=== PATIENT | male | born 1940 | race Caucasian/White ===

== ENCOUNTER → 2016-12-15 | Outpatient (CLI) | payer OTHER ==
[~2016-12-15] MED LIST: GADOBUTROL 10 ML VIAL IVP ONE
[2016-12-15 09:02] LABS: CREATININE 0.9 mg/dL (0.7-1.3); GLOMERULAR FILTRATION RATE > 60
--- NOTE | 2016-12-15 10:12 | MR ---
MRI of the Brain (Without and With Contrast) Clinical History: 76-year-old male with a history of atrial fibrillation and cognitive dysunction. Ru le out stroke. ICD 10 Diagnostic Code: R41.89. Technique: T1-weighted images were acquired axially and sagittally from the foramen magnum to the sku ll vertex. Axial fast inversion recovery, fast T2-weighted, and diffusion-weighted axial images were obtained without contrast. Postcontrast axial, coronal, and sagittal images followed the uneventful intravenous administration of 7.5 mL of IV Gadavist contrast. Comparison Study: Unenhanced CT imaging of brain, dated May 13, 2009. Findings: There is moderate prominence of the ventricles and basilar cisterns, with cortical sulcal w idening, consistent with global cerebral cortical atrophy. There is also mild degree of cerebellar co rtical atrophy. There is no mass, midline subfalcine shift, herniation, or intraparenchymal, subarach noid, epidural, or subdural hematoma. The diffusion-weighted images demonstrates no acute or subacute infarct. The SWI sequences do not reveal any blooming artifact to suggest occult hemorrhagic product s, or amyloid angiopathy. The FLAIR sequences are notable for some scattered periventricular level shaikh bcortical and deep white matter hyperintensities, most consistent with chronic microvascular ischemic gliosis. The cerebellar tonsils are in a normal position. The pituitary gland is normal in size. Nor amaya-expected signal flow-voids are noted in the superior sagittal sinus, the vertebrobasilar artery , and both internal carotid arteries, indicating patency. Postcontrast images demonstrate no enhancin g lesions, or abnormal leptomeningeal enhancement. The paranasal sinuses and the mastoid air cells ar e clear. The orbits are unremarkable. There is mild leftward nasal septal deviation. Impression: Moderate global cerebral cortical atrophy, with no evidence of a localized infarction.
== END ==
LOC: FIMAGING 08:07
PROVIDERS: ATTEND Internal Medicine
DX: G31.9 Degenerative disease of nervous system, unspecified (principal); I48.91 Unspecified atrial fibrillation
CPT/HCPCS: 70553; A9585

== ENCOUNTER 2017-09-04 12:52 | Emergency (ER) | payer OTHER ==
--- NOTE | 2017-09-04 13:27 | EDPHY ---
H & P Stated Complaint: irregular heart rate, Afib Time Seen by Provider: 09/04/17 13:10 HPI/ROS: CHIEF COMPLAINT: Palpitations HISTORY OF PRESENT ILLNESS: Patient is a 77-year-old man with history of paroxysmal atrial fibrillation. He is on carvedilol and aspirin. He does not take any other blood thinners because this only happens once per year or so. He states that usually lasts 5 or 10 minutes and then resolved spontaneously. He has not had to be cardioverted before. He states that he could tell when it began today around 10:00 a.m.. He feels lightheaded when he stands up and easily fatigued when he walks. No shortness of breath. No chest pain. He was hypotensive at the medical center and was referred to the emergency department. He denies recent infections. He also has a history of hypothyroidism. REVIEW OF SYSTEMS: Constitutional: denies: chills, fever, recent illness, recent injury EENTM: denies: blurred vision, double vision, nose congestion Respiratory: denies: cough, shortness of breath Cardiac: See HPI Gastrointestinal/Abdominal: denies: abdominal pain, diarrhea, nausea, vomiting, blood streaked stools Genitourinary: denies: dysuria, frequency, hematuria, pain Musculoskeletal: denies: joint pain, muscle pain Skin: denies: lesions, rash, jaundice, bruising Neurological: denies: headache, numbness, paresthesia, tingling, dizziness, weakness Hematologic/Lymphatic: denies: blood clots, easy bleeding, easy bruising Immunologic/allergic: denies: HIV/AIDS, transplant EXAM: GENERAL: Well-appearing, well-nourished and in no acute distress. HEAD: Atraumatic, normocephalic. EYES: Pupils equal round and reactive to light, extraocular movements intact, sclera anicteric, conjunctiva are normal. ENT: TMs normal, nares patent, oropharynx clear without exudates. Moist mucous membranes. NECK: Normal range of motion, supple without lymphadenopathy or JVD. LUNGS: Breath sounds clear to auscultation bilaterally and equal. No wheezes rales or rhonchi. HEART: Irregular without murmurs, rubs or gallops. ABDOMEN: Soft, nontender, normoactive bowel sounds. No guarding, no rebound. No masses appreciated. BACK: No CVA tenderness, no spinal tenderness, step-offs or deformities EXTREMITIES: Normal range of motion, no pitting or edema. No clubbing or cyanosis. NEUROLOGICAL: Cranial nerves II through XII grossly intact. Normal speech, normal gait. 5/5 strength, normal movement in all extremities, normal sensation PSYCH: Normal mood, normal affect. SKIN: Warm, dry, normal turgor, no visible rashes or lesions. Source: Patient Exam Limitations: No limitations - Personal History Current Tetanus Diphtheria and Acellular Pertussis (TDAP): Yes Tetanus Vaccine Date: 2004 - Medical/Surgical History Hx Asthma: Yes Hx Chronic Respiratory Disease: No Hx Diabetes: No Hx Cardiac Disease: No Hx Renal Disease: No Hx Cirrhosis: No Hx Alcoholism: No Hx HIV/AIDS: No Hx Splenectomy or Spleen Trauma: No Other PMH: Paroxysmal afib, hypothyroidism,depression asthma - Family History Significant Family History: No pertinent family hx - Social History Smoking Status: Unknown if ever smoked Alcohol Use: Sober Drug Use: None Constitutional: Initial Vital Signs Temperature (C) 36 C 09/04/17 12:57 Heart Rate 83 09/04/17 12:57 Respiratory Rate 16 09/04/17 12:57 Blood Pressure 99/73 L 09/04/17 12:57 O2 Sat (%) 96 09/04/17 12:57 O2 Delivery Mode [Post Room Air Procedure 3rd] O2 Delivery Mode [Procedural Non-Rebreather Mask 2nd] O2 Delivery Mode [Post Non-Rebreather Mask Procedure 1st] O2 Delivery Mode [Procedural Non-Rebreather Mask 1st] O2 Delivery Mode [.Immediate Non-Rebreather Mask Pre-Procedure] O2 Delivery Mode Room Air O2 (L/minute) [Procedural 2nd] 15 O2 (L/minute) [Post Procedure 15 1st] O2 (L/minute) [Procedural 1st] 15 O2 (L/minute) [.Immediate Pre- 15 Procedure] O2 (L/minute) 6 Allergies/Adverse Reactions: No Known Allergies Allergy (Verified 01/13/12 19:01) Home Medications: Medication Instructions Recorded Ascorbic Acid [Vitamin C] 1,000 mg PO 01/13/12 Aspirin [Aspirin 81mg] 81 mg PO DAILY 01/13/12 Carvedilol [Coreg] 3.125 mg PO BIDMEAL 01/13/12 DULoxetine [Cymbalta] 60 mg PO DAILY 01/13/12 Iron Bis-Gly/FA/C/B12/Ca/Succ 65 mg PO 01/13/12 [Iron-150 Tablet] Levothyroxine [Synthroid] 88 mcg PO DAILY@1000 01/13/12 MAGNESIUM [Magnesium Oxide] 1 tab PO DAILY 01/13/12 Modafinil [Provigil] 200 mg PO DAILY 01/13/12 Multivit-Min/FA/Lycopene/Lut 1 each PO 01/13/12 [Centrum Silver Tablet] Ped Multivit #45/Iron Sulfate 50 ml PO 01/13/12 [Poly-Vi-Raiza With Iron] Ramipril [Altace] 2.5 mg PO DAILY 01/13/12 Apixaban [Eliquis] 5 mg PO BID #60 tablet 09/04/17 Carvedilol 09/04/17 Medical Decision Making - Diagnostics EKG Interpretation: An EKG obtained and was read and documented in trace view. Please see trace view for full reading and report. Atrial fibrillation, Imaging Results: Imaging Impressions Chest X-Ray 09/04/17 13:21 Impression: Negative. Procedures: Cardioversion: The patient was sedated and then synchronized cardioversion with 125 joules. He went from atrial fibrillation to sinus rhythm. His blood pressure immediately responded from 85 systolic to 125 systolic. He is feeling much better. Heart rate 85. Procedure: Procedural sedation. Indication: Cardioversion. A pre-sedation evaluation was completed on the patient just prior to the procedure. Patient is an appropriate candidate for procedural sedation with a normal 3-3-2 rule assessment and a Mallampati airway score of class 1. The risks of the sedation were discussed including but not limited to dysrhythmia, need for airway intervention or general anesthesia, disability, ; and verbal consent obtained. A timeout was observed and patient's identity confirmed. The patient was sedated with ketamine. The patient was monitored with continuous pulse oximetry, capnography, and campus monitor. There were no complications and no significant hypoxemia. I remained at the bedside for the sedation. The total time I spent in the procedural sedation was 16 minutes. ED Course/Re-evaluation: The patient is having symptomatic atrial fibrillation and is borderline hypotensive. He reports that at the medical center is blood pressure is 80/55. This patient would benefit from cardioversion. He is hesitant for electrical cardioversion. I will start with procainamide. He is somewhat stable at this time but I am worried he will decompensate. I will withhold further Cardizem at this time because of his hypertension and his rate is controlled generally between 90 and 100 3:00 p.m. the patient was initially hesitant for cardioversion. He was given procainamide without significant response. His heart rate remained in the 120s and his blood pressure was dropping between 75 and 85 systolic. Decision was made for emergency cardioversion. He was also pretreated with Lovenox. 3:45 p.m. the patient remains stable. His blood pressure is improved to normal. His heart rate is 70. He is eager to go home. I am waiting for Cardiology to call back. 405 Dr. Victor is here to evaluate the patient and agrees with discharge. He recommends Eliquis for the next month until he follows up with Dr. Dupree. We have given him a card for free 30 days treatment. Differential Diagnosis: Partial list of the Differential diagnosis considered include but were not limited to; atrial fibrillation, hypotension and although unlikely based on the history and physical exam, I also considered infection, acute coronary disease. I discussed these differential diagnoses and the plan with the patient as well as the usual and expected course. The patient understands that the diagnosis is provisional and that in medicine we are not always correct and that further workup is often warranted. Usual and customary warnings were given. All of the patient's questions were answered. The patient was instructed to return to the emergency department should the symptoms at all worsen or return, otherwise to followup with the physician as we discussed. Critical Care Time: Critical care time spent by me, Dr. Boyd exclusive with this patient was 45 minutes, exclusive of the PA time exclusive of procedures. The organ system that was at risk was cardiovascular and I gave IV fluids, medications, cardioversion to prevent worsening of the patient's condition - Data Points Laboratory Results: Laboratory Results 09/04/17 13:38 09/04/17 13:38 09/04/17 09/04/17 13:38 13:38 WBC 8.00 10^3/uL 10^3/uL (3.80-9.50) RBC 5.04 10^6/uL 10^6/uL (4.40-6.38) Hgb 15.9 g/dL g/dL (13.7-17.5) Hct 46.2 % % (40.0-51.0) MCV 91.7 fL fL (81.5-99.8) MCH 31.5 pg pg (27.9-34.1) MCHC 34.4 g/dL g/dL (32.4-36.7) RDW 13.6 % % (11.5-15.2) Plt Count 219 10^3/uL 10^3/uL (150-400) MPV 8.9 fL fL (8.7-11.7) Neut % (Auto) 65.8 % % (39.3-74.2) Lymph % (Auto) 19.9 % % (15.0-45.0) [place] % (Auto) 9.8 % % (4.5-13.0) Eos % (Auto) 3.1 % % (0.6-7.6) Baso % (Auto) 1.3 % % (0.3-1.7) Nucleat RBC Rel Count 0.0 % % (0.0-0.2) Absolute Neuts (auto) 5.27 10^3/uL 10^3/uL (1.70-6.50) Absolute Lymphs (auto) 1.59 10^3/uL 10^3/uL (1.00-3.00) Absolute Monos (auto) 0.78 10^3/uL 10^3/uL (0.30-0.80) Absolute Eos (auto) 0.25 10^3/uL 10^3/uL (0.03-0.40) Absolute Basos (auto) 0.10 10^3/uL 10^3/uL (0.02-0.10) Absolute Nucleated RBC 0.00 10^3/uL 10^3/uL (0-0.01) Immature Gran % 0.1 % % (0.0-1.1) Immature Gran # 0.01 10^3/uL 10^3/uL (0.00-0.10) Sodium 141 mEq/L mEq/L (134-144) Potassium 4.5 mEq/L mEq/L (3.5-5.2) Chloride 103 mEq/L mEq/L (97-110) Carbon Dioxide 27 mEq/l mEq/l (22-31) Anion Gap 11 mEq/L mEq/L (8-16) BUN 17 mg/dL mg/dL (7-23) Creatinine 1.4 mg/dL H mg/dL (0.7-1.3) Estimated GFR 49 Glucose 83 mg/dL mg/dL (70-100) Calcium 9.0 mg/dL mg/dL (8.5-10.4) Troponin I 0.028 ng/mL ng/mL (0.000-0.034) TSH 2.960 uIU/mL uIU/mL (0.465-4.680) Free T4 1.00 ng/dL ng/dL (0.59-2.19) Medications Given: Discontinued Medications Enoxaparin Sodium (Lovenox) 80 mg SC ONCE ONE Stop: 09/04/17 14:01 Last Admin: 09/04/17 14:20 Dose: 80 mg Sodium Chloride (Ns) 1,000 mls @ 0 mls/hr IV EDNOW ONE; Wide Open PRN Reason: Protocol Stop: 09/04/17 13:21 Last Admin: 09/04/17 13:36 Dose: 1,000 mls Procainamide HCl 1,000 mg/ (Dextrose) 60 mls @ 120 mls/hr IV ONCE ONE Stop: 09/04/17 13:51 Last Admin: 09/04/17 14:19 Dose: 60 mls Ketamine HCl (Ketamine) 50 mg IVP EDNOW ONE Stop: 09/04/17 14:59 Last Admin: 09/04/17 14:58 Dose: 50 mg Departure - Departure Disposition: Home, Routine, Self-Care Clinical Impression: History of cardioversion Atrial fibrillation Qualifiers: Atrial fibrillation type: paroxysmal Qualified Code(s): I48.0 - Paroxysmal atrial fibrillation Condition: Fair Instructions: Atrial Flutter (ED), A-fib (Atrial Fibrillation) (ED) Referrals: Janae Tovar MD [Primary Care Provider] - As per Instructions David Dupree MD [Medical Doctor] - 5-7 days, call for appt. Prescriptions: Apixaban [Eliquis] 5 mg PO BID #60 tablet
--- NOTE | 2017-09-04 13:32 | CPEKG ---
Heart Rate: 129 RR Interval: 465 QRSD Interval: 88 QT Interval: 336 QTC Interval: 493 QRS [place]: 58 T Wave [place]: 65 EKG Severity - ABNORMAL ECG - EKG Impression: ATRIAL FIBRILLATION EKG Impression: BORDERLINE T ABNORMALITIES, ANT-LAT LEADS EKG Impression: BORDERLINE PROLONGED QT INTERVAL Electronically Signed By: Albaro Boyd 04-Sep-2017 13:33:23
[2017-09-04] MEDS: NS 1,000 ML IV ONE (13:36)
[2017-09-04 13:46] LABS: % IMMATURE GRANULYOCYTES 0.1 % (0.0-1.1); ABSOLUTE IMMATURE GRANULOCYTES 0.01 10^3/uL (0.00-0.10); ADD DIFF? NO; ADD MORPH? NO; ADD SCAN? NO; ATYPICAL LYMPHOCYTE FLAG 0 (0-99); FRAGMENT RBC FLAG 0 (0-99); HEMATOCRIT 46.2 % (40.0-51.0); HEMOGLOBIN 15.9 g/dL (13.7-17.5); LEFT SHIFT FLG 0 (0-99); LIPEMIA HEMOLYSIS FLAG 90 (0-99); MEAN CELL HEMOGLOBIN 31.5 pg (27.9-34.1); MEAN CELL HEMOGLOBIN CONCENTR. 34.4 g/dL (32.4-36.7); MEAN CELL VOLUME 91.7 fL (81.5-99.8); MEAN PLATELET VOLUME 8.9 fL (8.7-11.7); PLATELET CLUMPS FLAG 10 (0-99); PLATELET COUNT 219 10^3/uL (150-400); RED BLOOD CELL COUNT 5.04 10^6/uL (4.40-6.38); RED CELL DISTRIBUTION WIDTH 13.6 % (11.5-15.2)
[2017-09-04 13:55] LABS: ANION GAP 11 mEq/L (8-16); CARBON DIOXIDE 27 mEq/l (22-31); CHLORIDE 103 mEq/L (97-110); CREATININE 1.4 mg/dL (0.7-1.3); GLOMERULAR FILTRATION RATE 49; GLUCOSE 83 mg/dL (70-100); POTASSIUM 4.5 mEq/L (3.5-5.2); SODIUM 141 mEq/L (134-144)
[2017-09-04 14:07] LABS: TROPONIN I 0.028 ng/mL (0.000-0.034)
[2017-09-04] MEDS: PROCAINAMIDE HCL 1,000 MG in D5W 50 ML IV ONE (14:19)
[2017-09-04] MEDS: ENOXAPARIN 80 MG/0.8 ML SYR SC ONE (14:20)
[2017-09-04] MEDS ORDERED: KETAMINE 100 MG/10 ML SYR ONE (14:45)
[2017-09-04] MEDS: KETAMINE 100 MG/10 ML SYR IVP ONE (14:58)
[2017-09-04 17:05] VITALS: BP 98/58; PULSE 76; RESP 18; TEMP 97.9; O2SAT 92
--- NOTE | 2017-09-04 17:24 | GCON ---
[f rep st] CONSULTATION DATE OF CONSULTATION: 09/04/2017 CONSULTATION REQUESTED BY: Dr. Boyd from the ER. REASON FOR CONSULTATION: Paroxysmal atrial fibrillation. HISTORY: The patient is a 77-year-old male with a history of paroxysmal atrial fibrillation and nicho schemic cardiomyopathy. He was followed for many years by Dr. Paris at [facility], and he currently sees Dr. David Dupree. He presents to the emergency room with recurrence of his atrial f ibrillation. He could tell that his arrhythmia started earlier today. He noticed that he was very f atigued and felt lightheaded upon standing. He did not have any chest discomfort. He was seen at [facility] and was hypotensive with systolic pressures in the 80s. Therefore, he was refer red to the emergency department. Because of his low blood pressure, it was recommended that he under go cardioversion. He was somewhat reluctant to consider this; therefore, he was administered intrave nous procainamide without any change in his arrhythmia. Because of continued hypotension, he ultimat estephanie did undergo electrical cardioversion by Dr. Boyd in the ER. We were then contacted to assess the patient for potential discharge from the emergency room. The patient is currently stable and fee ls well. He is maintaining sinus rhythm. PAST MEDICAL HISTORY: He has a nonischemic cardiomyopathy. In 2002, his ejection fraction was repor fanta as 35%. At that time, cardiac catheterization demonstrated normal coronary arteries. I do not h ave any information regarding more recent assessment of his left ventricular function. A consultatio n for an episode of syncope in 2008 mentions amiodarone 100 mg daily in addition to his other medicat ions. He is not currently on anti-arrhythmic therapy. It sounds as if, because he has a relatively low burden of atrial fibrillation, systemic anticoagulation has been deferred. Additionally, he had significant epistaxis and gum bleeding along with some hematuria when he was on warfarin in the past. He reports that he experiences self-limited episodes of palpitations, lasting just a couple minutes on a fairly regular basis. A few times per year he may have a longer episode, such as today. He do es not have a history of hypertension or diabetes. He says his cholesterol is somewhat borderline, b ut he has not been placed on cholesterol-lowering medications. He has hypothyroidism. He has not ho d any major surgical procedures. FAMILY HISTORY: Noncontributory. MEDICATIONS: His home medicines consist of aspirin, carvedilol 3.125 mg twice daily, Cymbalta, Synth roid, Provigil, Altace 2.5 mg daily, and a multivitamin. ALLERGIES: No known drug allergies. SOCIAL HISTORY: He is . His is with him in the emergency room today. He has never been a smoker. Alcohol consumption is minimal. REVIEW OF SYSTEMS: Apart from the issues mentioned in the history of present illness, a 10-point rev iew was negative. PHYSICAL EXAMINATION: VITAL SIGNS: Heart rate in the 70s with sinus rhythm on the monitor. Blood p ressure 120s over 70s. GENERAL: Well-developed, well-nourished male, in no acute distress. He is a lert and oriented x3. HEAD AND NECK: No scleral icterus. Mucous membranes moist. Carotid pulses 2 + without bruits. No JVD. CHEST: Lung fabian clear to auscultation bilaterally. CARDIAC: Regular rate and rhythm with a normal S1, S2. No murmur or gallop appreciated. ABDOMEN: Soft, nontender, and nondistended with normal bowel sounds. EXTREMITIES: 2+ pulses and no peripheral edema. DIAGNOSTICS: ECG: At the time of presentation demonstrated atrial fibrillation with a ventricular r ate of 129 beats per minute. There were no Q-waves or conduction system abnormalities. No ischemic ST-T wave abnormalities. LABORATORY STUDIES: Sodium 141, potassium 4.5, BUN and creatinine 17 and 1.4. Troponin is 0.028. C BC: White blood cell count of 8.0 with hemoglobin and hematocrit of 15.9 and 46.2, and platelet coun t 219,000. IMPRESSION: This is a 77-year-old male with a history of paroxysmal atrial fibrillation. He present ed today with a significantly symptomatic episode associated with hypotension. He underwent electric al cardioversion in the emergency room. He is now stable and able to be discharged. RECOMMENDATIONS: Given the fact that he underwent an electrical cardioversion, his risk for left atr ial appendage thrombus and potential stroke are increased for the next 4 weeks. Therefore he will di scontinue his aspirin and has been given a prescription for Eliquis 5 mg twice daily to be taken for the next 30 days. He can discuss whether or not to pursue long-term systemic anticoagulation with Dr Pelon Dupree. Likewise, adjustments to his treatment plan, such as addition of an antiarrhythmic, should b e solely based on the patient's preference and how bothersome his episodes of atrial fibrillation are . He certainly appears to be a candidate for balloon cryoablation if his atrial fibrillation becomes more frequent and/or more bothersome. /[id number]/MODL
== END 2017-09-04 17:09 | disposition home or self-care (01) ==
PROC: 5A2204Z Restoration of Cardiac Rhythm, Single (ICD-10-PCS; principal; 2017-09-04)
DX: I48.0 Paroxysmal atrial fibrillation (principal); J45.909 Unspecified asthma, uncomplicated; E86.9 Volume depletion, unspecified; Z79.82 Long term (current) use of aspirin; Z79.01 Long term (current) use of anticoagulants; Z98.890 Other specified postprocedural states
CPT/HCPCS: 96365; J1650; J2690

== ENCOUNTER 2017-12-27 09:32 | Emergency (ER) | payer OTHER ==
--- NOTE | 2017-12-27 09:40 | EDPHY ---
H & P Time Seen by Provider: 12/27/17 09:38 HPI/ROS: CHIEF COMPLAINT: Atrial fibrillation and chest pain HISTORY OF PRESENT ILLNESS: Patient felt well when he went to bed last night but awakened at 6:00 a.m. With some left-sided chest discomfort felt like a cramp just left of the sternum. Did not radiate not associated with shortness of breath or nausea or diaphoresis. He realized he was in rapid atrial fibrillation at a persisted until about 9:40 a.m. And now he has no normal rate. Chest pain is gone now. Not associated with dizziness lightheadedness or syncope. REVIEW OF SYSTEMS: Eye: no change in vision ENT: no sore throat Cardiac: HPI Pulmonary: no cough or SOB Abdomen: no vomiting, diarrhea, abdominal pain Musculoskeletal: no back pain Skin: no rash Neuro: no headache Constitutional: no fever : no urinary symptoms A comprehensive 10 point review of systems is otherwise negative aside from elements mentioned in the history of present illness. PAST MEDICAL HISTORY: Consultation from Dr. Victor dated 09/04/2017 personally reviewed. Includes atrial fibrillation and nonischemic cardiomyopathy. Normal coronary arteries on catheterization in 2002. He was electrically cardioverted at the time of this visit. Hypothyroid, depression, asthma Social history: Nonsmoker General Appearance: Alert and conversant, cooperative. Eyes: No scleral icterus. ENT, Mouth: Normal mucous membranes. Respiratory: Normal respiratory effort, breath sounds equal, lungs are clear to auscultation. Cardiovascular: Regular rate and rhythm. No murmur. Gastrointestinal: Abdomen is soft and non tender. Neurological: Alert, face symmetric, normal motor and sensory in extremities. Skin: Warm and dry, no rashes. Musculoskeletal: No peripheral edema. Psychiatric: Not agitated. Emergency Department course/MDM: Patient resolved spontaneously into a sinus rhythm. Plan to check troponin Cardiology discussion. On Eliqusabas, PE unlikely. Per Dr. Ovidio DC if 3 hour troponin negative and still in NSR. Smoking Status: Never smoked Constitutional: Initial Vital Signs Temperature (C) 36.5 C 12/27/17 09:34 Heart Rate 83 12/27/17 09:34 Respiratory Rate 18 12/27/17 09:34 Blood Pressure 120/68 12/27/17 09:34 O2 Sat (%) 95 12/27/17 09:34 O2 Delivery Mode Room Air Allergies/Adverse Reactions: No Known Allergies Allergy (Verified 12/27/17 09:33) Home Medications: Medication Instructions Recorded Ascorbic Acid [Vitamin C] 1,000 mg PO 01/13/12 Aspirin [Aspirin 81mg] 81 mg PO DAILY 01/13/12 Carvedilol [Coreg] 3.125 mg PO BIDMEAL 01/13/12 DULoxetine [Cymbalta] 60 mg PO DAILY 01/13/12 Iron Bis-Gly/FA/C/B12/Ca/Succ 65 mg PO 01/13/12 [Iron-150 Tablet] Levothyroxine [Synthroid] 88 mcg PO DAILY@1000 01/13/12 MAGNESIUM [Magnesium Oxide] 1 tab PO DAILY 01/13/12 Modafinil [Provigil] 200 mg PO DAILY 01/13/12 Multivit-Min/FA/Lycopene/Lut 1 each PO 01/13/12 [Centrum Silver Tablet] Ped Multivit #45/Iron Sulfate 50 ml PO 01/13/12 [Poly-Vi-Raiza With Iron] Ramipril [Altace] 2.5 mg PO DAILY 01/13/12 Apixaban [Eliquis] 5 mg PO BID #60 tablet 09/04/17 Carvedilol 09/04/17 Multaq 400 mg (*) 12/27/17 Medical Decision Making Differential Diagnosis: Differential diagnosis considered for chest pain including but not limited to myocardial ischemia, aortic dissection, pericarditis, pulmonary embolus, chest wall pain, pleural inflammation and pulmonary infectious causes. Consult/Admit Bed Type: [place] 1050 DC if 3hr trop neg - Data Points Laboratory Results: Laboratory Results 12/27/17 09:40 12/27/17 09:40 12/27/17 12/27/17 12/27/17 12:45 09:40 09:40 WBC 6.60 10^3/uL 10^3/uL (3.80-9.50) RBC 5.30 10^6/uL 10^6/uL (4.40-6.38) Hgb 16.4 g/dL g/dL (13.7-17.5) Hct 49.9 % % (40.0-51.0) MCV 94.2 fL fL (81.5-99.8) MCH 30.9 pg pg (27.9-34.1) MCHC 32.9 g/dL g/dL (32.4-36.7) RDW 13.4 % % (11.5-15.2) Plt Count 230 10^3/uL 10^3/uL (150-400) MPV 9.3 fL fL (8.7-11.7) Neut % (Auto) 58.6 % % (39.3-74.2) Lymph % (Auto) 25.6 % % (15.0-45.0) [place] % (Auto) 10.5 % % (4.5-13.0) Eos % (Auto) 3.6 % % (0.6-7.6) Baso % (Auto) 1.4 % % (0.3-1.7) Nucleat RBC Rel Count 0.0 % % (0.0-0.2) Absolute Neuts (auto) 3.87 10^3/uL 10^3/uL (1.70-6.50) Absolute Lymphs (auto) 1.69 10^3/uL 10^3/uL (1.00-3.00) Absolute Monos (auto) 0.69 10^3/uL 10^3/uL (0.30-0.80) Absolute Eos (auto) 0.24 10^3/uL 10^3/uL (0.03-0.40) Absolute Basos (auto) 0.09 10^3/uL 10^3/uL (0.02-0.10) Absolute Nucleated RBC 0.00 10^3/uL 10^3/uL (0-0.01) Immature Gran % 0.3 % % (0.0-1.1) Immature Gran # 0.02 10^3/uL 10^3/uL (0.00-0.10) Sodium 143 mEq/L mEq/L (135-145) Potassium 4.1 mEq/L mEq/L (3.5-5.2) Chloride 103 mEq/L mEq/L (97-110) Carbon Dioxide 28 mEq/l mEq/l (22-31) Anion Gap 12 mEq/L mEq/L (8-16) BUN 20 mg/dL mg/dL (7-23) Creatinine 1.4 mg/dL H mg/dL (0.7-1.3) Estimated GFR 49 Glucose 92 mg/dL mg/dL (70-100) Calcium 10.0 mg/dL mg/dL (8.5-10.4) Troponin I < 0.012 ng/mL ng/mL < 0.012 ng/mL ng/mL (0.000-0.034) (0.000-0.034) Departure - Departure Disposition: Home, Routine, Self-Care Clinical Impression: Chest pain Qualifiers: Chest pain type: unspecified Qualified Code(s): R07.9 - Chest pain, unspecified Atrial fibrillation Qualifiers: Atrial fibrillation type: paroxysmal Qualified Code(s): I48.0 - Paroxysmal atrial fibrillation Condition: Good Instructions: A-fib (Atrial Fibrillation) (ED) Referrals: Sarah Cox MD [Primary Care Provider] - As per Instructions
--- NOTE | 2017-12-27 09:46 | CPEKG ---
Heart Rate: 73 RR Interval: 822 P-R Interval: 164 QRSD Interval: 94 QT Interval: 404 QTC Interval: 446 P [place]: 80 QRS [place]: 55 T Wave [place]: 68 EKG Severity - ABNORMAL ECG - EKG Impression: SINUS RHYTHM EKG Impression: MULTIPLE VENTRICULAR PREMATURE COMPLEXES Electronically Signed By: Alfred Salinas 27-Dec-2017 09:54:03
[2017-12-27 09:57] LABS: PLATELET COUNT 230 10^3/uL (150-400)
[2017-12-27 13:37] VITALS: BP 112/68; PULSE 73; RESP 15; TEMP 97.9; O2SAT 94
== END 2017-12-27 13:37 | disposition home or self-care (01) ==
DX: R07.9 Chest pain, unspecified (principal); I48.0 Paroxysmal atrial fibrillation; J45.909 Unspecified asthma, uncomplicated; Z79.82 Long term (current) use of aspirin

== ENCOUNTER → 2018-04-28 | Outpatient (CLI) | payer OTHER | LOC: BMCIMAGING 16:20 | PROVIDERS: ATTEND Internal Medicine | DX: Z87.09 Personal history of other diseases of the respiratory system (principal); R91.8 Other nonspecific abnormal finding of lung field ==

== ENCOUNTER 2018-07-05 07:59 | Emergency (ER) | payer OTHER ==
[2018-07-05] MEDS ORDERED: NS 1,000 ML IV ONE ×3 (08:26→11:06)
[2018-07-05] MEDS ORDERED: DILTIAZEM 25 MG/5 ML VIAL IVP ONE (08:26)
--- NOTE | 2018-07-05 08:30 | EDPHY ---
H & P Time Seen by Provider: 07/05/18 08:14 HPI/ROS: Chief complaint. Rapid atrial fibrillation HPI. Patient is a 78-year-old male with paroxysmal atrial fibrillation on Eliquis. This morning he woke with a fast and irregular rhythm. He feels generally weak and lightheaded. Mild achy left chest discomfort without radiation. He says this is like similar previous episodes. He has so COPD in always mildly short of breath but he says no change in his breathing. He has been taking his Eliquis. He took Multaq this morning. Patient had a similar episode June 16 and was cardioverted. This episode feels the same to the patient ROS Constitutional. Generalized weakness. No fever Eyes. no problems with vision ENT. no sore throat, no nasal drainage Cardiovascular. Chest discomfort with fast and irregular heartbeat Respiratory. no shortness of breath, no cough Abdominal. no abdominal pain, no nausea/vomiting, no diarrhea . no problems urinating MS. no calf pain/swelling, no neck/back pain, no joint pain Skin. no rash Lymph. no swollen glands Neuro. no headache, no dizziness, no difficulty walking or with speech Past Medical/Surgical History: Past medical history is significant for paroxysmal atrial fibrillation on Eliquis, hypothyroid, depression, asthma/COPD Social History: , nonsmoker, no alcohol Smoking Status: Never smoked Physical Exam: General Appearance: Alert well-developed male moderate distress vital signs significant for heart rate 124 and blood pressure initially 98/46 Eyes: Pupils equal and round no pallor or injection. ENT, Mouth: Mucous membranes are moist. Respiratory: There are no retractions, lungs are clear to auscultation. Cardiovascular: Irregularly irregular rate. Rapid ventricular response Gastrointestinal: Abdomen is soft and nontender, no masses, bowel sounds normal. Neurological: Awake and alert, sensory and motor exams grossly normal. Skin: Warm and dry, no rashes. Musculoskeletal: Neck is supple nontender. Extremities symmetrical, full range of motion. Psychiatric: Patient is oriented X 3, there is no agitation. Constitutional: Initial Vital Signs Temperature (C) 36.4 C 07/05/18 08:03 Heart Rate 124 H 07/05/18 08:03 Respiratory Rate 16 07/05/18 08:03 Blood Pressure 98/46 L 07/05/18 08:03 O2 Sat (%) 95 07/05/18 08:03 O2 Delivery Mode [Procedural Non-Rebreather Mask 4th] O2 Delivery Mode [Procedural Non-Rebreather Mask 3rd] O2 Delivery Mode [Procedural Non-Rebreather Mask 2nd] O2 Delivery Mode [Procedural Non-Rebreather Mask 1st] O2 Delivery Mode [.Immediate Non-Rebreather Mask Pre-Procedure] O2 Delivery Mode Room Air O2 (L/minute) [Procedural 4th] 10 O2 (L/minute) [Procedural 3rd] 10 O2 (L/minute) [Procedural 2nd] 10 O2 (L/minute) [Procedural 1st] 10 O2 (L/minute) [.Immediate Pre- 10 Procedure] Allergies/Adverse Reactions: No Known Allergies Allergy (Verified 07/05/18 08:02) Home Medications: Medication Instructions Recorded Ascorbic Acid [Vitamin C] 500 mg PO 01/13/12 Carvedilol [Coreg] 3.125 mg PO BIDMEAL 01/13/12 DULoxetine [Cymbalta] 60 mg PO DAILY 01/13/12 Iron Bis-Gly/FA/C/B12/Ca/Succ 65 mg PO 01/13/12 [Iron-150 Tablet] Levothyroxine [Synthroid] 88 mcg PO DAILY@1000 01/13/12 MAGNESIUM [Magnesium Oxide] 1 tab PO DAILY 01/13/12 Modafinil [Provigil] 200 mg PO DAILY 01/13/12 Multivit-Min/FA/Lycopene/Lut 1 each PO 01/13/12 [Centrum Silver Tablet] Ped Multivit #45/Iron Sulfate 50 ml PO 01/13/12 [Poly-Vi-Raiza With Iron] Ramipril [Altace] 2.5 mg PO DAILY 01/13/12 Multaq 400 mg (*) 400 mg PO DAILY 12/27/17 Eliquis 5 mg PO BID 06/16/18 Medical Decision Making - Diagnostics EKG Interpretation: EKG interpreted by me shows atrial fibrillation with rapid ventricular response. Normal axis. QRS otherwise normal. No significant ST elevation or depression. Ventricular response 145 Post cardioversion EKG shows normal sinus rhythm normal interval and axis. QRS is normal there is no significant ST elevation or depression. The rate is 60 Procedures: IV normal saline, monitor. 1 L of saline given Diltiazem 10 mg intravenously Procedure: Conscious sedation. Indication: Cardioversion I was asked by Dr. Dupree to perform procedural sedation The patient is an appropriate candidate to tolerate procedural sedation. The patient's vital signs and mental status are appropriate. The risks, benefits and alternatives of the sedation were discussed with the patient. The patient is ASA classification 2. The patient's Mallampati airway score was 1 and the patient did meet the 3-3-2 airway measurements. A time out was completed. The patient was sedated with etomidate 10 mg IV secondary to low blood pressure. The patient was monitored with continuous pulse oximetry, pecan mallow dipper and end tidal CO2. There were no complications and no significant hypoxemia. I performed sedation The total time I spent at the bedside during the procedural sedation was 20 minutes. The patient was examined after the procedural sedation and has returned to their pre-sedation baseline with normal vital signs and a normal examination. 1st cardioversion attempted 200 joules shows continuing atrial fibrillation While the patient was sedated he was given a 2nd shock at 200 joules. This converted the patient to normal sinus rhythm ED Course/Re-evaluation: I consulted discussed the case with Dr. Dupree for Cardiology and either he or Dr. Dupree will will see the patient in the emergency department for planned cardioversion 9:20 a.m. heart rate is 61 with patient in normal sinus rhythm. Blood pressure was approximately 108 and now 94/61 Re-evaluation 9:40 a.m. Patient is awake and alert. He is drinking fluids. He has no complaints. 11:00 a.m. patient is without symptoms. Blood pressure recheck is 86/55. He will be given another L of saline. Re-evaluation again at 12:10 p.m.. Patient is up and ambulatory without symptoms. Blood pressure 99/65. He and his feel comfortable being discharged Differential Diagnosis: Atrial fibrillation with rapid ventricular response. I considered other dysrhythmias, electrolyte abnormalities, acute coronary syndrome. Patient is back in normal sinus rhythm after cardioversion - Data Points Laboratory Results: Laboratory Results 07/05/18 08:15 07/05/18 08:15 07/05/18 07/05/18 07/05/18 08:17 08:15 08:15 WBC RBC Hgb Hct MCV MCH MCHC RDW Plt Count MPV Neut % (Auto) Lymph % (Auto) Craven % (Auto) Eos % (Auto) Baso % (Auto) Nucleat RBC Rel Count Absolute Neuts (auto) Absolute Lymphs (auto) Absolute Monos (auto) Absolute Eos (auto) Absolute Basos (auto) Absolute Nucleated RBC Immature Gran % Immature Gran # PT 16.8 SEC H SEC (12.0-15.0) INR 1.34 H (0.83-1.16) APTT 36.4 SEC SEC (23.0-38.0) Sodium 140 mEq/L mEq/L (135-145) Potassium 4.1 mEq/L mEq/L (3.3-5.0) Chloride 103 mEq/L mEq/L (97-110) Carbon Dioxide 28 mEq/l mEq/l (22-31) Anion Gap 9 mEq/L mEq/L (8-16) BUN 26 mg/dL H mg/dL (7-23) Creatinine 1.4 mg/dL H mg/dL (0.7-1.3) Estimated GFR 49 Glucose 99 mg/dL mg/dL (70-100) Calcium 9.9 mg/dL mg/dL (8.5-10.4) POC Troponin I 0.01 ng/mL ng/mL (0.00-0.08) 07/05/18 08:15 WBC 7.97 10^3/uL 10^3/uL (3.80-9.50) RBC 5.28 10^6/uL 10^6/uL (4.40-6.38) Hgb 16.0 g/dL g/dL (13.7-17.5) Hct 48.5 % % (40.0-51.0) MCV 91.9 fL fL (81.5-99.8) MCH 30.3 pg pg (27.9-34.1) MCHC 33.0 g/dL g/dL (32.4-36.7) RDW 14.1 % % (11.5-15.2) Plt Count 259 10^3/uL 10^3/uL (150-400) MPV 8.9 fL fL (8.7-11.7) Neut % (Auto) 60.6 % % (39.3-74.2) Lymph % (Auto) 19.8 % % (15.0-45.0) Craven % (Auto) 11.4 % % (4.5-13.0) Eos % (Auto) 6.6 % % (0.6-7.6) Baso % (Auto) 1.3 % % (0.3-1.7) Nucleat RBC Rel Count 0.0 % % (0.0-0.2) Absolute Neuts (auto) 4.83 10^3/uL 10^3/uL (1.70-6.50) Absolute Lymphs (auto) 1.58 10^3/uL 10^3/uL (1.00-3.00) Absolute Monos (auto) 0.91 10^3/uL H 10^3/uL (0.30-0.80) Absolute Eos (auto) 0.53 10^3/uL H 10^3/uL (0.03-0.40) Absolute Basos (auto) 0.10 10^3/uL 10^3/uL (0.02-0.10) Absolute Nucleated RBC 0.00 10^3/uL 10^3/uL (0-0.01) Immature Gran % 0.3 % % (0.0-1.1) Immature Gran # 0.02 10^3/uL 10^3/uL (0.00-0.10) PT INR APTT Sodium Potassium Chloride Carbon Dioxide Anion Gap BUN Creatinine Estimated GFR Glucose Calcium POC Troponin I Medications Given: Discontinued Medications Diltiazem HCl (Cardizem 25 Mg/5 Ml Vial) 10 mg IVP EDNOW ONE Stop: 07/05/18 08:27 Last Admin: 07/05/18 08:35 Dose: 10 mg Etomidate (Etomidate) 10 mg IVP EDNOW ONE Stop: 07/05/18 09:01 Last Admin: 07/05/18 09:10 Dose: 10 mg Sodium Chloride (Ns) 1,000 mls @ 0 mls/hr IV EDNOW ONE; Wide Open PRN Reason: Protocol Stop: 07/05/18 08:27 Last Admin: 07/05/18 08:35 Dose: 1,000 mls Sodium Chloride (Ns) 1,000 mls @ 0 mls/hr IV EDNOW ONE; Wide Open PRN Reason: Protocol Stop: 07/05/18 09:03 Last Admin: 07/05/18 09:03 Dose: 1,000 mls Sodium Chloride (Ns) 1,000 mls @ 0 mls/hr IV EDNOW ONE; Wide Open PRN Reason: Protocol Stop: 07/05/18 11:07 Last Admin: 07/05/18 11:14 Dose: 1,000 mls Point of Care Test Results: Chemistry 07/05/18 08:17 POC Troponin I 0.01 ng/mL ng/mL (0.00-0.08) Departure - Departure Disposition: Home, Routine, Self-Care Clinical Impression: Atrial fibrillation with RVR, Atrial fibrillation status post cardioversion Atrial fibrillation Qualifiers: Atrial fibrillation type: paroxysmal Qualified Code(s): I48.0 - Paroxysmal atrial fibrillation Condition: Good Instructions: A-fib (Atrial Fibrillation) (ED) Additional Instructions: Continue regular medications. Easy activity today. Return for worsening symptoms. Follow-up with Dr. Sinclair for evaluation for possible ablation Referrals: Sarah Cox MD [Primary Care Provider] - As per Instructions David Dupree MD [Medical Doctor] - 2-3 days, call for appt. Eliu Sinclair MD [Medical Doctor] - As per Instructions
[2018-07-05 08:35] LABS: PLATELET COUNT 259 10^3/uL (150-400)
[2018-07-05 08:47] LABS: INR 1.34 (0.83-1.16); PROTIME(PATIENT) 16.8 SEC (12.0-15.0)
[2018-07-05] MEDS ORDERED: PROPOFOL/EMULSION 1,000 MG/100 ML BOTTLE IV ONE (08:58)
[2018-07-05] MEDS ORDERED: ETOMIDATE 40 MG/20 ML INJ ONE (08:58)
[2018-07-05] MEDS ORDERED: ETOMIDATE 40 MG/20 ML INJ IVP ONE (09:00)
[2018-07-05] MEDS ORDERED: PROPOFOL 200 MG/20 ML VIAL ONE (09:01)
--- NOTE | 2018-07-05 09:50 | CPR ---
[f rep st] NONINVASIVE CARDIAC PROCEDURE REPORT DATE OF PROCEDURE: 07/05/2018 PROCEDURE PERFORMED: Direct current cardioversion. INDICATION FOR CARDIOVERSION: Symptomatic atrial fibrillation with hypotension. SUMMARY: The patient is a pleasant 78-year-old gentleman with a known history of paroxysmal atrial f ibrillation. He is well known to my practice at [facility]. He has been on rhythm control and an ticoagulation strategy with Multaq, metoprolol, as well as anticoagulation with Eliquis 5 mg p.o. b.i .d. He had recently been in [facility] Emergency Department earlier this month on Au 2017, with symptomatic atrial fibrillation. He underwent successful cardioversion at that ti ar. He presents today with new onset of symptomatic atrial fibrillation with rates ranging from the mid 8 0s to low 100s. He states he has been compliant with his medications. He has not missed a single do se of Eliquis. DESCRIPTION OF PROCEDURE: After consent was signed for cardioversion, patient was given 10 mg of IV etomidate. Once appropriate level of sedation was achieved, patient was cardioverted with a shock of 200 joules of biphasic synchronized energy. He remained in atrial fibrillation. A second shock of synchronized biphasic energy at 205 joules restored normal sinus rhythm. Patient awoke from procedur e without complication. PLAN: 1. Patient will be discharged home on current medications. 2. Patient will schedule consultation with Dr. Eliu Sinclair for consideration of atrial fibrillation a blation. /[id number]/MODL
[2018-07-05 12:12] VITALS: BP 99/65
--- NOTE | 2018-07-05 15:59 | CPEKG ---
Test Reason : OPEN Blood Pressure : / mmHG Vent. Rate : 145 BPM Atrial Rate : 194 BPM P-R Int : 124 ms QRS Dur : 098 ms QT Int : 324 ms P-R-T Axes : 000 057 065 degrees QTc Int : 504 ms Atrial fibrillation with rapid V-rate Confirmed by Jeremy Farley ([id number]) on 07/05/2018 3:58:36 PM Referred By: Confirmed By:Jeremy Farley
--- NOTE | 2018-07-05 15:59 | CPEKG ---
Test Reason : OPEN Blood Pressure : / mmHG Vent. Rate : 060 BPM Atrial Rate : 060 BPM P-R Int : 166 ms QRS Dur : 111 ms QT Int : 438 ms P-R-T Axes : 082 047 077 degrees QTc Int : 438 ms Sinus rhythm Minimal ST elevation, anterior leads Confirmed by Jeremy Farley ([id number]) on 07/05/2018 3:59:21 PM Referred By: Confirmed By:Jeremy Farley
== END 2018-07-05 12:17 | disposition home or self-care (01) ==
PROC: 5A2204Z Restoration of Cardiac Rhythm, Single (ICD-10-PCS; principal; 2018-07-05)
DX: I48.91 Unspecified atrial fibrillation (principal); I95.9 Hypotension, unspecified; E86.9 Volume depletion, unspecified; Z79.01 Long term (current) use of anticoagulants
CPT/HCPCS: 84484-PO; 96374; J2704

== ENCOUNTER → 2018-08-18 | Outpatient (CLI) | payer OTHER ==
[~2018-08-18] MED LIST changes: -GADOBUTROL 10 ML VIAL IVP ONE; +IOPAMIDOL (ISOVUE 370) 100 ML BTL IV ONE
== END ==
LOC: FIMAGING 10:06
PROVIDERS: ATTEND Internal Medicine Cardiovascular Disease
DX: I48.91 Unspecified atrial fibrillation (principal); R91.1 Solitary pulmonary nodule
CPT/HCPCS: 75572; Q9967; 82565-PO

== ENCOUNTER 2018-08-25 07:05 | Observation (INO) | payer OTHER ==
[2018-08-25] MEDS ORDERED: DIAZEPAM 5 MG TAB PO ONE (07:06)
[2018-08-25] MEDS ORDERED: ceFAZolin 2 GM/DEXTROSE 100 ML IV ONE (07:06)
[2018-08-25] MEDS ORDERED: BACITRACIN IRRIGATION/NS 50,000 UNITS/1,000 ML BTL IRR ONE (07:06)
[2018-08-25] MEDS ORDERED: NS 1,000 ML IV ONE (07:06)
[2018-08-25 07:46] LABS: PLATELET COUNT 219 10^3/uL (150-400)
[2018-08-25 07:55] LABS: INR 1.04 (0.83-1.16); PROTIME(PATIENT) 13.8 SEC (12.0-15.0)
[2018-08-25] MEDS ORDERED: fentaNYL 100 MCG/2 ML INJ IVP PRN (08:09)
[2018-08-25] MEDS ORDERED: oxyCODONE IR 5 MG TAB PO PRN (08:09)
[2018-08-25] MEDS ORDERED: ONDANSETRON 4 MG/2 ML VIAL IVP PRN (08:09)
[2018-08-25] MEDS ORDERED: ALBUTEROL 3 ML DEYVIAL IH PRN (08:09)
[2018-08-25] MEDS ORDERED: HYDROmorphONE/DILAUDID 2 MG/ML INJ IVP PRN (08:09)
[2018-08-25] MEDS ORDERED: NALOXONE HCL 0.4 MG/ML INJ IVP PRN (08:09)
[2018-08-25] MEDS ORDERED: ACETAMINOPHEN 500 MG TAB PO PRN (08:09)
[2018-08-25] MEDS ORDERED: DEXAMETHASONE 4 MG/ML VIAL IVP PRN (08:09)
[2018-08-25] MEDS ORDERED: MIDAZOLAM 2 MG/2 ML VIAL IVP ONE (08:09)
--- NOTE | 2018-08-25 08:10 | PDANEPAE ---
ANE History of Present Illness EP Study ANE Past Medical History - Cardiovascular History Hx Arrhythmias: Yes Hx CHF / Valvular Disease: Yes - Pulmonary History Hx COPD: Yes Hx Asthma/Reactive Airway Disease: Yes Hx Oxygen in Use at Home: No Hx Sleep Apnea: Yes - Endocrine History Hx Diabetes: No ANE Review of Systems Review of Systems: ANE Patient History - Allergies Allergies/Adverse Reactions: No Known Allergies Allergy (Verified 07/05/18 08:02) - Home Medications Home Medications: Carvedilol [Coreg] 3.125 mg PO BIDMEAL 01/13/12 [Last Taken 06/15/18 18:00] Ramipril [Altace] 2.5 mg PO DAILY 01/13/12 [Last Taken 06/15/18 08:00] Dronedarone HCl [Multaq 400 mg (*)] 400 mg PO DAILY 12/27/17 [Last Taken 07:30] Apixaban [Eliquis] 5 mg PO BID 06/16/18 [Last Taken 08/22/18] Ascorbic Acid [Vitamin C 500 mg (*)] 500 mg PO DAILY 08/19/18 [Last Taken Unknown] Atorvastatin Calcium [Lipitor 20 mg (*)] 20 mg PO HS 08/19/18 [Last Taken Unknown] Budesonide/Formoterol 160/4.5 [Symbicort 160-4.5 Mcg Inh (*)] 1 puffs IH BID 08/27 [Last Taken Unknown] Cholecalciferol Vit D3 [Vitamin D3 (*)] 2,500 units PO DAILY 08/19/18 [Last Taken Unknown] Cyanocobalamin [Vitamin B12 (*)] 1,000 mcg PO DAILY 08/19/18 [Last Taken Unknown ] DULoxetine [Cymbalta 60 MG (*)] 60 mg PO DAILY 08/19/18 [Last Taken Unknown] Ferrous Sulfate [Ferrous Sulf 325 MG (*)] 325 mg PO DAILY 08/19/18 [Last Taken Unknown] Herbals/Supplements -Info Only 1 ea PO DAILY 08/19/18 [Last Taken Unknown] Levothyroxine [Synthroid 88 mcg (*)] 88 mcg PO DAILY06 08/19/18 [Last Taken Unknown] Modafinil [Provigil 100 mg (*)] 200 mg PO DAILY 08/19/18 [Last Taken Unknown] Multivitamins [Multivitamin (*)] 1 each PO DAILY 08/19/18 [Last Taken Unknown] Omeprazole 20 mg PO DAILY 08/19/18 [Last Taken Unknown] traZODone [traZODONE 50MG (*)] 50 mg PO HS 08/19/18 [Last Taken Unknown] - Smoking Hx Smoking Status: Never smoked ANE Labs/Vital Signs - Labs Result Diagrams: 08/25/18 07:25 08/25/18 07:25 - Vital Signs Height: 193.04 cm Weight: 83.915 kg ANE Physical Exam - Airway Neck exam: FROM Mallampati Score: Class 2 Mouth exam: normal dental/mouth exam - Pulmonary Pulmonary: clear to auscultation - Cardiovascular Cardiovascular: regular rate and rhythym - ASA Status ASA Status: III ANE Anesthesia Plan Anesthesia Plan: general endotracheal anesthesia
[2018-08-25] MEDS ORDERED: HEPARIN/DEXTROSE 25,000 UNIT/500 ML BAG ONE (08:11)
[2018-08-25] MEDS ORDERED: LIDOCAINE 1% 300 MG/30 ML SDV ONE (08:12)
[2018-08-25] MEDS ORDERED: BUPIVACAINE 0.75% 10 ML SDV ONE (08:12)
[2018-08-25] MEDS ORDERED: IOPAMIDOL (ISOVUE-300) 100 ML BTL ONE (08:12)
[2018-08-25] MEDS ORDERED: HEPARIN 10,000 UNIT/10 ML MDV (1,000 UNIT/ML) ONE (08:12)
[2018-08-25] MEDS ORDERED: PROPOFOL 200 MG/20 ML VIAL ONE (08:26)
[2018-08-25] MEDS ORDERED: fentaNYL 100 MCG/2 ML INJ ONE ×3 (08:26→10:09)
[2018-08-25] MEDS ORDERED: DEXAMETHASONE 4 MG/ML VIAL ONE (08:28)
[2018-08-25] MEDS ORDERED: ONDANSETRON 4 MG/2 ML VIAL ONE (08:28)
[2018-08-25] MEDS ORDERED: ROCURONIUM 50 MG/5 ML VIAL ONE (08:28)
[2018-08-25] MEDS ORDERED: MIDAZOLAM 2 MG/2 ML VIAL ONE (08:30)
--- NOTE | 2018-08-25 08:30 | PDGENHP ---
History & Physical Chief Complaint: symptomatic afib Relevant Physical Exam: [id number]. cta. ao3 Cardiorespiratory Assessment: cb pvi for symptomatic afib, failed meds
[2018-08-25] MEDS ORDERED: ePHEDrine SULFATE 25 MG/5 ML SYR ONE (09:17)
[2018-08-25] MEDS ORDERED: VASOPRESSIN 20 UNIT/ML VIAL ONE (09:19)
[2018-08-25] MEDS ORDERED: PROTAMINE SULFATE 50 MG/5 ML VIAL IVP ONE (11:17)
--- NOTE | 2018-08-25 12:00 | EPPROC ---
Electrophysiology Procedure Note: ELECTROPHYSIOLOGIC STUDY AND CATHETER MEDIATED ABLATION FOR PAROXYSMAL ATRIAL FIBRILLATION Procedures performed: 61034-69 EP evaluation with RA/RV/LA pace/record, with arrhythmia induction 44325-85 EP evaluation with RA/RV pace record, insert/reposition catheter, with arrhythmia induction 58874 Atrial fibrillation ablation 69707 3D mapping Intracardiac echocardiogram Transseptal puncture Fluoroscopy INDICATION: Paroxysmal atrial fibrillation Non ischemic cardiomyopathy Procedures performed: 58253-06 EP evaluation with RA/RV/LA pace/record, with arrhythmia induction 67409-77 EP evaluation with RA/RV pace record, insert/reposition catheter, with arrhythmia induction 71196 Atrial fibrillation ablation Intracardiac echocardiogram Transseptal puncture Fluoroscopy INDICATION: Paroxysmal atrial fibrillation PROCEDURE: The patient arrived in the Electrophysiology Laboratory in the fasting state. The right groin, left groin and right infraclavicular area were prepped and draped in the usual sterile fashion. Anesthesiologist administered general anesthesia Dr. Christoph Starks . All catheters were placed percutaneously using the Seldinger technique and advanced into position under fluoroscopic guidance. One #7 Irish deflectable octapolar electrode catheter was placed in the His-bundle position via the left femoral vein (2mm spacing, IVC electrode for unipolar recordings). This catheter was placed in the coronary sinus after transseptal puncture and later placed in the SVC-R subclavian vein junction to pace the right phrenic nerve during right pulmonary vein ablation. One #8 Irish AcuNaV ultrasound catheter was placed in the left femoral vein and advanced into the right atrium. One #4 Irish sheath was inserted into the left femoral artery via percutaneous technique and used for continuous arterial blood pressure monitoring and intermittent ACT determination. Programmed stimulation was performed from the right atrium, left atrium (CS) and right ventricle. Intracardiac echo evaluation of the left atrium and pulmonary veins was performed. Baseline ACT was drawn and heparin bolus was administered and heparin drip was started prior to transseptal puncture. ACT was checked every 15 minutes and maintained in the range of 350-400 seconds. One 14Fr short sheath was placed in the right femoral vein. One 8Fr SL1 sheath was advanced into the right atrium via the 14Fr short sheath. Transseptal puncture was performed under intracardiac ultrasound, fluoroscopic and hemodynamic guidance placing the sheath into the left atrium. The [employer] RF needle ( C0 curve) was used. The mean left atrial pressure was 10 mmHg. 3D map of left atrial and pulmonary veins was performed using PentaRay catheter. The SL1 sheath was exchanged for a Medtronic Flexcath sheath using an Amplatz stiff guide wire. A 28 mm Cryoballoon catheter with a 20 mm Achieve catheter was placed via the sheath into the left atrium. Intracardiac ultrasound and PV angiograms were used to assist in placing the mapping catheter at the antrum of the pulmonary veins. All pulmonary veins were isolated successfully using cryoballoon ablation using freeze/thaw/freeze cycles at 2-3-minute intervals, with good [id number] of isolation. Coumadin ridge/Ligament of Artemio region was ablated. Pre and post pulmonary vein recordings were measured on the spiral Achieve catheter to ensure complete pulmonary vein isolation. During the right-sided ablation, phrenic nerve pacing was performed to assess the phrenic nerve strength ( manually and with ICE visualization of liver movement during phrenic capture) and the phrenic nerve was intact throughout the right-sided ablation and at the end of the procedure. Left common vein was isolated segmentally. An esophageal temperature probe (12 electrode, Circa) was placed by the anesthesiologist at the beginning of the procedure. Esophageal temperature was monitored continuously and cryoablation was interrupted if esophageal temperature was <15 C. Cryoapplications 11 total cryoablation time 1682 s. ICE imaging post ablation was consistent with pre ablation imaging with no changes noted, moreover there was no left atrial/left ventricular thrombus and no pericardial effusion. The catheters were withdrawn. Protamine was given. The sheaths were removed and subcutaneous pursestring suture and manual pressure was used for hemostasis. The patient was recovered from anesthesia. There were no complications. The patient was arousable and moving all four extremities at the end of the procedure. CONCLUSIONS: 1. Paroxysmal atrial fibrillation. 2. Successful pulmonary vein isolation procedure (left and right pulmonary vein antrum) using cryoballoon ablation. 3. No apparent complications. Patient Problems: Problems Problem Status Onset Atrial fibrillation with RVR Acute
--- NOTE | 2018-08-25 12:12 | POSTANESTH ---
Post Anesthetic Evaluation Cardiovascular Status: Normal, Stable Respiratory Status: Normal, Stable Level of Consciousness/Mental Status: Can Participate in Eval, Mildly Sleepy, Arousable Pain Control: Adequate, Prn Tx Ordered Nausea/Vomiting Control: Adequate, Prn Tx Ordered Complications Possibly Related to Anesthesia: None Noted
[2018-08-25] MEDS ORDERED: APIXABAN 5 MG TAB PO SCH (18:00)
[2018-08-25] MEDS: CARVEDILOL 3.125 MG TAB PO SCH (19:41)
[2018-08-25] MEDS: BUDESONIDE/FORMOTEROL 160/4.5 60 PUFFS/MDI IH SCH (20:41)
[2018-08-25] MEDS ORDERED: traZODone 50 MG TAB PO SCH (21:00)
[2018-08-25] MEDS ORDERED: ATORVASTATIN CALCIUM 20 MG TAB PO SCH (21:00)
[2018-08-25] MEDS ORDERED: PANTOPRAZOLE SODIUM 40 MG TAB PO ONE (22:23)
[2018-08-25] MEDS ORDERED: PANTOPRAZOLE SODIUM 40 MG TAB PO SCH (22:30)
[2018-08-26 05:25] LABS: PLATELET COUNT 194 10^3/uL (150-400)
[2018-08-26] MEDS ORDERED: LEVOTHYROXINE 88 MCG TAB PO SCH (06:00)
[2018-08-26] MEDS: BUDESONIDE/FORMOTEROL 160/4.5 60 PUFFS/MDI IH SCH (08:15)
[2018-08-26] MEDS: CARVEDILOL 3.125 MG TAB PO SCH (08:17)
[2018-08-26] MEDS ORDERED: RAMIPRIL 2.5 MG CAP PO SCH (09:00)
[2018-08-26] MEDS ORDERED: PANTOPRAZOLE SODIUM 40 MG TAB PO SCH (09:00)
[2018-08-26] MEDS ORDERED: CYANO/VITAMIN B12 1000 MCG TAB PO SCH (09:00)
[2018-08-26] MEDS ORDERED: APIXABAN 5 MG TAB PO SCH (09:00)
[2018-08-26] MEDS ORDERED: FERROUS SULFATE 325 MG TAB PO SCH (09:00)
[2018-08-26] MEDS ORDERED: CHOLECALCIFEROL VIT D3 1,000 UNITS TAB PO SCH (09:00)
[2018-08-26] MEDS ORDERED: DULoxetine 60 MG CAP PO SCH (09:00)
[2018-08-26] MEDS ORDERED: MULTIVITAMINS 1 EACH TAB PO SCH (09:00)
[2018-08-26] MEDS ORDERED: MODAFINIL 100 MG TAB PO SCH (09:00)
[2018-08-26] MEDS ORDERED: PANTOPRAZOLE SODIUM 40 MG TAB PO ONE (10:33)
[2018-08-26 11:22] VITALS: BP 122/65
--- NOTE | 2018-08-26 15:16 | ECHO ---
[email or web address] [address] [address] Main: [phone] Fax: [email or web address] Echocardiogram Name: ALONSO KRAFT MR#: [id number] Study Date: 08/26/2018 Study Time: 08:35 AM Date of : 1940 Age: 78 year(s) Height: 193 cm (76 in.) Weight: 83.92 kg (185 lb.) BSA: 2.14 m2 Gender: Male Examination: Echo Indication: F/U Post EP Study Image Quality: Technically Difficult Contrast: Requested by: Eliu Sinclair BP: 110 mmHg/56 mmHg Heart Rate: Rhythm: Indication: F/U Post EP Study Procedure Staff Business Support Associate: Rosa Dubois RDCS Reading Physician: Timmy Victor MD Requesting Provider: Conclusions: Dilated left ventricle. Mild concentric LV hypertrophy. The ejection fraction is visually estimated to be 35 %. No regional wall motion abnormality. Mild mitral valve regurgitation is present. Trivial tricuspid valve regurgitation. Right ventricular systolic pressure measures 26mmHg. Dilated aortic root measuring 4.1 cm. Trivial pericardial effusion. Compared to 06/16/2018, LVEF was previously reported as 40-45%. Measurements: Chambers Valvular Assessment AV/MV Valvular Assessment TV/PV Normal Normal Normal Name Value Range Name Value Range Name Value Range Ao [place] (2D): 4.1 cm (1.4 cm-2.6 AV Vmax: 0.95 m/s (1 m/s-1.7 TR Vmax: 2.27 mm/s ( - ) cm) m/s) TR PGmax: 21 mmHg ( - ) IVSd (2D): 1.2 cm (0.6 cm-1.1 AV maxP mmHg ( - ) syst. PAP: 26 mmHg ( - ) cm) AV meanP mmHg ( - ) PV Vmax: 0.74 m/s (0.6 m/s-0.9 LVDd (2D): 4.8 cm (4.2 cm-5.9 PANCHO (VTI): 3.3 cm ( - ) m/s) cm) MV E Vmax: 0.38 m/s ( - ) PV PGmax: 2 mmHg ( - ) LVDs (2D): 4.2 cm (2.1 cm-4 MV A Vmax: 0.50 m/s ( - ) cm) MV E/A: 0.76 ( - ) LVPWd (2D): 1.2 cm (0.6 cm-1 cm) MV PHT: 0.089 s ( - ) LVOTd 2.2 cm 2.2 cm mm MVA (PHT): 2.5 s ( - ) LVEF (MOD4): 38 % (>=55 %) Visual EF: 35 % Continued Measurements: Patient: ALONSO KRAFT Study Date: 08/26/2018 Page 1 of 2 08:35 AM Chambers Valvular Assessment AV/MV Valvular Assessment TV/PV Name Value Name Value Name Value LADs: 3.7 cm MV DecTime: 257 m/s CVP (est.): 5 mmHg LADs Lon.6 cm MV E' Septal: 0.04 m/s LA Area: 17.1 cm2 MV E/E' Septal: 9.10 RA Area: 13.6 cm2 MV E/E' Lateral: 5.20 Additional Vessels Name Value Ao Ascendin.4 cm Inferior Vena Cava: 1.9 cm Findings: Left Ventricle: Dilated left ventricle. Mild concentric LV hypertrophy. The ejection fraction is visually estimated to be 35 %. No regional wall motion abnormality. Normal diastolic LV function. Reduced LV function. Right Ventricle: Normal size right ventricle. Normal RV function. Left Atrium: The left atrium is normal in size. Right Atrium: The right atrium is normal in size. Mitral Valve: The mitral valve is normal in appearance and function. Mild mitral valve regurgitation is present. No mitral stenosis is present. Aortic Valve: The aortic valve is tri-leaflet. There is no significant aortic valve regurgitation. No aortic valve stenosis is present. Tricuspid Valve: The tricuspid valve is normal in appearance and function. Trivial tricuspid valve regurgitation. The pulmonary artery pressure is normal. Right ventricular systolic pressure measures 26mmHg. Pulmonic Valve: The pulmonic valve is normal in appearance and function. There is no pulmonic regurgitation seen. Aorta: The aorta is normal. Dilated aortic root measuring 4.1 cm. Normal size ascending aorta measuring 3.4 cm. IVC: The IVC is normal sized. Pericardium: Trivial pericardial effusion. No pleural effusion. (No Signature Object) Patient: ALONSO KRAFT Study Date: 08/26/2018 Page 2 of 2 08:35 AM [id number]
--- NOTE | 2018-08-26 20:53 | GDS ---
DISCHARGE DIAGNOSES: 1. Paroxysmal atrial fibrillation. 2. Nonischemic cardiomyopathy. 3. Essential hypertension. 4. Sleep apnea on therapy. 5. Mildly dilated ascending aorta. PROCEDURES: 1. EP study with successful pulmonary vein isolation of the left and right pulmonary vein antrum usi ng cryoballoon ablation. 2. 08/26/18, echocardiogram, which showed LVEF of 35% with mild concentric LVH, mild MR, RVSP of 26 with dilated aortic root of 4.1. BRIEF HISTORY: Please see dictated H and P for complete details. In brief, the patient is a 78-year -old male, who was referred to Dr. Sinclair for atrial fibrillation. Due to failure on antiarrhythmics, carla allen was scheduled for EP study with ablation. This was done on 08/25/18. On day of discharge, scooter chin denies any chest pain, dyspnea, PND, or orthopnea. His groin sutures were removed. PHYSICAL EXAM: VITAL SIGNS: On day of discharge, blood pressure 122/65, heart rate 83, respiration 16, O2 saturation 95% on room air. GENERAL: He is a pleasant man in no apparent distress. HEAD: N ormocephalic, atraumatic. EYES: Without scleral icterus. HEART: Regular rate and rhythm. LUNGS: Clear to auscultation. GROIN: Site is without ecchymosis or bruit auscultated. LABORATORY DATA: CBC with WBC 10.48, hemoglobin 13.2, hematocrit 38.9, platelet count of 194. BMP w ith sodium 136, potassium 4, chloride 102, CO2 27, BUN 15, creatinine 0.8, glucose 100, magnesium 2.1 . Troponin 8.38, consistent with recent ablation. RESULTS PENDING: None. DIET: Per previous. ACTIVITY: Groin precautions were reviewed. FOLLOWUP INSTRUCTIONS: 1. Groin precautions. 2. Follow up with Dr. Sinclair as scheduled. /[id number]/MODL
[2018-08-27] MEDS ORDERED: PANTOPRAZOLE SODIUM 40 MG TAB PO SCH (09:00)
--- NOTE | 2018-08-27 11:51 | CPEKG ---
Test Reason : OPEN Blood Pressure : / mmHG Vent. Rate : 065 BPM Atrial Rate : 067 BPM P-R Int : 161 ms QRS Dur : 105 ms QT Int : 449 ms P-R-T Axes : 080 049 064 degrees QTc Int : 467 ms Sinus rhythm Ventricular premature complex Confirmed by Adolph Sam ([id number]) on 08/27/2018 11:51:21 AM Referred By: Confirmed By:Adolph Sam
--- NOTE | 2018-08-27 12:00 | CPEKG ---
Test Reason : OPEN Blood Pressure : / mmHG Vent. Rate : 077 BPM Atrial Rate : 077 BPM P-R Int : 161 ms QRS Dur : 106 ms QT Int : 433 ms P-R-T Axes : 082 056 041 degrees QTc Int : 491 ms Sinus rhythm Borderline prolonged QT interval Confirmed by Adolph Sam ([id number]) on 08/27/2018 12:00:03 PM Referred By: Confirmed By:Adolph Sam
--- NOTE | 2018-08-27 12:17 | CPEKG ---
Test Reason : OPEN Blood Pressure : / mmHG Vent. Rate : 079 BPM Atrial Rate : 079 BPM P-R Int : 155 ms QRS Dur : 100 ms QT Int : 387 ms P-R-T Axes : 077 059 069 degrees QTc Int : 444 ms Sinus rhythm Atrial premature complex Confirmed by Adolph Sam ([id number]) on 08/27/2018 12:16:46 PM Referred By: Confirmed By:Adolph Sam
== END 2018-08-26 12:15 | disposition home or self-care (01) ==
LOC: FCATH 07:05 → INTOOBSV 11:53 → F2N 11:53
PROVIDERS: ADMIT Internal Medicine Cardiovascular Disease; ATTEND Internal Medicine Cardiovascular Disease
PROC: 025T3ZZ Destruction of Left Pulmonary Vein, Percutaneous Approach (ICD-10-PCS; principal; 2018-08-25)
PROC: B246YZZ Ultrasonography of Right and Left Heart using Other Contrast (ICD-10-PCS; principal; 2018-08-25)
PROC: 02K83ZZ Map Conduction Mechanism, Percutaneous Approach (ICD-10-PCS; principal; 2018-08-25)
PROC: 02583ZZ Destruction of Conduction Mechanism, Percutaneous Approach (ICD-10-PCS; principal; 2018-08-25)
DX: I48.0 Paroxysmal atrial fibrillation (principal); I42.9 Cardiomyopathy, unspecified; I10 Essential (primary) hypertension; G47.33 Obstructive sleep apnea (adult) (pediatric); I77.810 Thoracic aortic ectasia
CPT/HCPCS: 93005; 93306; 93312; 93613; 93656; 93662; C1730; C1731; C1732; C1733; C1759; C1766; C1893; J1100; J1644; J2250; J2405; J2704; J2720; J3010; Q9967; J0690

== ENCOUNTER → 2018-09-10 | Outpatient (CLI) | payer OTHER | LOC: BHFA 13:15 | PROVIDERS: ATTEND Internal Medicine Cardiovascular Disease | DX: I48.91 Unspecified atrial fibrillation (principal) ==

== ENCOUNTER → 2018-09-30 | Outpatient (CLI) | payer OTHER | LOC: BHFA 15:00 | PROVIDERS: ATTEND Internal Medicine Cardiovascular Disease | DX: I48.91 Unspecified atrial fibrillation (principal) ==

== ENCOUNTER → 2018-10-28 | Outpatient (CLI) | payer OTHER | LOC: BHFA 13:00 | PROVIDERS: ATTEND Internal Medicine Cardiovascular Disease | DX: I48.91 Unspecified atrial fibrillation (principal); Z79.899 Other long term (current) drug therapy ==

== ENCOUNTER → 2018-11-23 | Outpatient (CLI) | payer OTHER | LOC: BHFA 13:00 | PROVIDERS: ATTEND Internal Medicine Cardiovascular Disease | DX: I48.91 Unspecified atrial fibrillation (principal) ==

== ENCOUNTER → 2019-04-22 | Outpatient (CLI) | payer OTHER | LOC: FIMAGING 09:52 ==